=== PATIENT | male | born 1945 | race Caucasian/White ===

== ENCOUNTER 2021-03-20 11:47 | Inpatient (IN) | payer MEDICARE, MEDICAID ==
[~2021-03-20] VITALS: Ht 167.6 cm; Wt 70.0 kg
[2021-03-20 13:54] LABS: BASOPHILS % (AUTO) 0.7 % (0.0-2.0); EOSINOPHILS % (AUTO) 1.1 % (1.0-6.0); HEMATOCRIT 35.2 % (41-53); HEMOGLOBIN 12.1 g/dL (13.5-17.5); LYMPHOCYTES # (AUTO) 1.5 K/uL (1.0-4.8); MEAN CORPUSCULAR HGB CONC 34.3 G/dL (31.0-37.0); MEAN CORPUSCULAR VOLUME 90 fL (80-100); MONOCYTES # (AUTO) 0.4 K/uL (0.1-1.0); MONOCYTES % (AUTO) 7.6 % (2.0-9.0); NEUTROPHILS # (AUTO) 3.5 K/uL (1.8-7.7); NEUTROPHILS % (AUTO) 62.6 % (40.0-70.0); PLATELET COUNT (AUTO) 210 K/uL (150-450); RED CELL DISTRIBUTION WIDTH 14.6 % (11.5-14.5)
[2021-03-20 14:18] LABS: ANION GAP 6 mmol/L (8-16); CALCIUM, TOTAL 8.7 mg/dL (8.8-10.5); CARBON DIOXIDE 29 mmol/L (22-29); CHLORIDE 105 mmol/L (98-107); CREATININE 0.85 mg/dL (0.60-1.30); GLUCOSE,RANDOM 110 mg/dL (70-110); POTASSIUM 3.5 mmol/L (3.5-5.1); SODIUM SERUM 140 mmol/L (136-145); UREA NITROGEN, BLOOD 15 mg/dL (7-18)
[2021-03-20 14:19] LABS: GLOMERULAR FILTR. RATE CALC > 60 mL/min (>60)
[2021-03-20 14:22] LABS: ALANINE AMINOTRANSFERASE 24 U/L (12-78); ALBUMIN 3.7 g/dL (3.4-5.0); ALKALINE PHOSPHATASE 86 U/L (46-116); ASPARTATE AMINOTRANSFERASE 37 U/L (15-37); BILIRUBIN,TOTAL 0.5 mg/dL (0.1-1.0); TOTAL PROTEIN, SERUM 7.4 g/dL (6.4-8.2)
[2021-03-20] MEDS ORDERED: BICA50TA49 PO (15:48)
[2021-03-20] MEDS ORDERED: FISH1CAP27 PO (15:48)
[2021-03-20] MEDS ORDERED: ZALE5CAP6 PO (15:48)
[2021-03-20] MEDS ORDERED: AMLO-257 PO (15:48)
[2021-03-20] MEDS ORDERED: LEVE250T4 PO (15:48)
[2021-03-20] MEDS ORDERED: COL RITE PO (15:48)
[2021-03-20] MEDS ORDERED: MAGNESIUM HYDROXIDE SUSPENSION 30 ML UDCUP PO PRN (17:00)
[2021-03-20] MEDS ORDERED: LORazepam 2 MG/ML VIAL IVP PRN (17:00)
[2021-03-20 17:55] LABS: COVID AG,FIA SOURCE NASAL SWAB
[2021-03-21] MEDS: LevETIRAcetam 250 MG TABLET PO SCH ×3 (06:15→21:23)
[2021-03-21] MEDS: ATORVASTATIN CALCIUM 20 MG TABLET PO SCH (08:06)
[2021-03-21] MEDS: FAMOTIDINE 20 MG TABLET PO SCH (08:07)
[2021-03-21] MEDS: ASPIRIN 81 MG CHEWABLE TABLET PO SCH (08:07)
[2021-03-21] MEDS ORDERED: HALOPERIDOL LACTATE 5 MG/ML VIAL IM ONE (16:15)
[2021-03-22] MEDS ORDERED: LORazepam 2 MG/ML VIAL IM ONE (02:00)
[2021-03-22] MEDS ORDERED: DiphenhydrAMINE HCL 50 MG/ML VIAL IM ONE (02:00)
[2021-03-22] MEDS ORDERED: HALOPERIDOL LACTATE 5 MG/ML VIAL IM ONE (02:00)
[2021-03-22] MEDS: ASPIRIN 81 MG CHEWABLE TABLET PO SCH (09:16)
[2021-03-22] MEDS: ATORVASTATIN CALCIUM 20 MG TABLET PO SCH (09:16)
[2021-03-22] MEDS: FAMOTIDINE 20 MG TABLET PO SCH (09:16)
[2021-03-22] MEDS: LevETIRAcetam 250 MG TABLET PO SCH ×2 (09:16→23:28)
[2021-03-22] MEDS ORDERED: DOCU250C77 PO (12:23)
[2021-03-22 20:45] VITALS: BP 152/83
[2021-03-22] MEDS: ACETAMINOPHEN 325 MG TABLET PO PRN (21:22)
[2021-03-22] MEDS: MELATONIN 3 MG TABLET PO SCH (23:28)
[2021-03-22] MEDS: QUEtiapine FUMARATE 25 MG TABLET PO SCH (23:28)
[2021-03-23 00:32] VITALS: BP 141/78
[2021-03-23 04:44] VITALS: BP 146/86
[2021-03-23 07:47] VITALS: BP 127/90
[2021-03-23] MEDS: ATORVASTATIN CALCIUM 20 MG TABLET PO SCH (09:14)
[2021-03-23] MEDS: ASPIRIN 81 MG CHEWABLE TABLET PO SCH (09:14)
[2021-03-23] MEDS: LevETIRAcetam 250 MG TABLET PO SCH ×2 (09:14→22:38)
[2021-03-23] MEDS: FAMOTIDINE 20 MG TABLET PO SCH (09:14)
[2021-03-23 11:29] VITALS: BP 152/72
[2021-03-23 19:50] VITALS: BP 158/87
[2021-03-23] MEDS: QUEtiapine FUMARATE 25 MG TABLET PO SCH (22:38)
[2021-03-23] MEDS: MELATONIN 3 MG TABLET PO SCH (22:38)
[2021-03-23] MEDS: ACETAMINOPHEN 325 MG TABLET PO PRN (22:39)
[2021-03-24] VITALS (7 sets, daily range): BP systolic 127–150; BP diastolic 75–96
[2021-03-24] MEDS ORDERED: QUEtiapine FUMARATE 25 MG TABLET PO ONE (01:00)
[2021-03-24] MEDS: ASPIRIN 81 MG CHEWABLE TABLET PO SCH (08:34)
[2021-03-24] MEDS: LevETIRAcetam 250 MG TABLET PO SCH ×2 (08:34→22:06)
[2021-03-24] MEDS: FAMOTIDINE 20 MG TABLET PO SCH (08:35)
[2021-03-24] MEDS: ATORVASTATIN CALCIUM 20 MG TABLET PO SCH (08:35)
[2021-03-24] MEDS: MELATONIN 3 MG TABLET PO SCH (21:37)
[2021-03-24] MEDS: QUEtiapine FUMARATE 25 MG TABLET PO SCH (21:37)
[2021-03-25] MEDS ORDERED: LORazepam 2 MG/ML VIAL IM ONE (01:00)
[2021-03-25 03:45] VITALS: BP 136/89
[2021-03-25 07:17] VITALS: BP 144/80
[2021-03-25 07:28] LABS: BASOPHILS % (AUTO) 0.3 % (0.0-2.0); EOSINOPHILS % (AUTO) 1.2 % (1.0-6.0); HEMATOCRIT 37.3 % (41-53); HEMOGLOBIN 12.6 g/dL (13.5-17.5); LYMPHOCYTES # (AUTO) 1.7 K/uL (1.0-4.8); LYMPHOCYTES % (AUTO) 22.3 % (22.0-44.0); MEAN CORPUSCULAR HEMOGLOBIN 30.9 pg (26.0-34.0); MEAN CORPUSCULAR HGB CONC 33.9 G/dL (31.0-37.0); MEAN CORPUSCULAR VOLUME 91 fL (80-100); MONOCYTES # (AUTO) 0.5 K/uL (0.1-1.0); MONOCYTES % (AUTO) 6.7 % (2.0-9.0); NEUTROPHILS # (AUTO) 5.4 K/uL (1.8-7.7); NEUTROPHILS % (AUTO) 69.5 % (40.0-70.0); PLATELET COUNT (AUTO) 219 K/uL (150-450); RED BLOOD CELL COUNT(AUTO) 4.09 MIL/uL (4.50-5.90); RED CELL DISTRIBUTION WIDTH 14.8 % (11.5-14.5)
[2021-03-25 07:35] LABS: CALCIUM, TOTAL 9.5 mg/dL (8.8-10.5); CREATININE 1.23 mg/dL (0.60-1.30)
[2021-03-25 07:40] LABS: POTASSIUM 2.9 mmol/L (3.5-5.1)
[2021-03-25] MEDS ORDERED: POTASSIUM CHLORIDE 20 MEQ ER TABLET PO PRN (08:30)
[2021-03-25] MEDS ORDERED: SODIUM CHLORIDE 0.45% 1,000 ML IV ONE (08:30)
[2021-03-25] MEDS ORDERED: POTASSIUM CHL 10 MEQ/WATER 50 ML IV PRN (08:30)
[2021-03-25] MEDS: FAMOTIDINE 20 MG TABLET PO SCH (08:57)
[2021-03-25] MEDS: ATORVASTATIN CALCIUM 20 MG TABLET PO SCH (08:57)
[2021-03-25] MEDS: LevETIRAcetam 250 MG TABLET PO SCH ×2 (08:58→20:56)
[2021-03-25] MEDS: ASPIRIN 81 MG CHEWABLE TABLET PO SCH (08:58)
[2021-03-25 11:31] VITALS: BP 144/81
[2021-03-25 15:27] VITALS: BP 156/87
[2021-03-25 19:52] VITALS: BP 147/99
[2021-03-25] MEDS: MELATONIN 3 MG TABLET PO SCH (20:56)
[2021-03-25] MEDS: QUEtiapine FUMARATE 25 MG TABLET PO SCH (20:56)
[2021-03-25 23:38] VITALS: BP 144/87
[2021-03-26 07:20] VITALS: BP 160/97
[2021-03-26] MEDS: ATORVASTATIN CALCIUM 20 MG TABLET PO SCH (08:07)
[2021-03-26] MEDS: LevETIRAcetam 250 MG TABLET PO SCH ×2 (08:07→23:20)
[2021-03-26] MEDS: ASPIRIN 81 MG CHEWABLE TABLET PO SCH (08:07)
[2021-03-26] MEDS: MULTIVITAMINS, THERAPEUTIC TABLET PO SCH (08:08)
[2021-03-26] MEDS: FAMOTIDINE 20 MG TABLET PO SCH (08:08)
[2021-03-26 11:04] VITALS: BP 155/88
[2021-03-26 14:48] VITALS: BP 148/92
[2021-03-26 20:02] VITALS: BP 138/97
[2021-03-26 20:07] VITALS: BP 134/78
[2021-03-26] MEDS: MELATONIN 3 MG TABLET PO SCH (23:20)
[2021-03-26] MEDS: QUEtiapine FUMARATE 25 MG TABLET PO SCH (23:21)
[2021-03-27 04:23] VITALS: BP 144/92
[2021-03-27 08:08] VITALS: BP 140/90
[2021-03-27] MEDS: ATORVASTATIN CALCIUM 20 MG TABLET PO SCH (08:28)
[2021-03-27] MEDS: FAMOTIDINE 20 MG TABLET PO SCH (08:28)
[2021-03-27] MEDS: LevETIRAcetam 250 MG TABLET PO SCH ×2 (08:28→19:50)
[2021-03-27] MEDS: MULTIVITAMINS, THERAPEUTIC TABLET PO SCH (08:28)
[2021-03-27] MEDS: ASPIRIN 81 MG CHEWABLE TABLET PO SCH (08:28)
[2021-03-27 11:50] VITALS: BP 135/86
[2021-03-27 15:43] VITALS: BP 143/87
[2021-03-27 19:28] VITALS: BP 136/82
[2021-03-27] MEDS: QUEtiapine FUMARATE 25 MG TABLET PO SCH (19:50)
[2021-03-27] MEDS: MELATONIN 3 MG TABLET PO SCH (19:51)
[2021-03-28 03:20] VITALS: BP 116/70
[2021-03-28] MEDS: MULTIVITAMINS, THERAPEUTIC TABLET PO SCH (08:10)
[2021-03-28] MEDS: ASPIRIN 81 MG CHEWABLE TABLET PO SCH (08:10)
[2021-03-28] MEDS: FAMOTIDINE 20 MG TABLET PO SCH (08:10)
[2021-03-28] MEDS: ATORVASTATIN CALCIUM 20 MG TABLET PO SCH (08:10)
[2021-03-28] MEDS: LevETIRAcetam 250 MG TABLET PO SCH (08:10)
[2021-03-28 08:21] VITALS: BP 139/91
[2021-03-28] MEDS ORDERED: LEVE250T4 PO (09:42)
[2021-03-28] MEDS ORDERED: QUET25TA PO (09:43)
[2021-03-28] MEDS ORDERED: ASPI81TA87 PO (09:44)
[2021-03-28] MEDS ORDERED: ATOR20TA86 PO (09:45)
[2021-03-28 15:41] VITALS: BP 146/83
== END 2021-03-28 18:30 | disposition home or self-care (01) | DRG 101 ==
LOC: EMS 11:57 → UNDOADMIN 03-21 19:29 → 6S 03-21 19:29 → AHU 03-22 09:05 → 5N 03-22 18:40 → 6S 03-22 20:42 → 5S 03-25 21:30 → 6N 03-26 18:45 → 6S 03-26 20:38
PROVIDERS: ADMIT Internal Medicine; ATTEND Internal Medicine
DX: G40.909 Epilepsy, unspecified, not intractable, without status epilepticus (principal); Z20.822 Contact with and (suspected) exposure to COVID-19; F03.90 Unspecified dementia, unspecified severity, without behavioral disturbance, psychotic disturbance, mood disturbance, and anxiety; E87.6 Hypokalemia; C61 Malignant neoplasm of prostate
CPT/HCPCS: 70450; 72125; 80048; 80053; 84132; 85025; 93005; 97116; 97162; 97166; 97530; 97535; 99285; J1200; J1630; J2060